=== PATIENT | female | born 1940 | race Caucasian/White ===

== ENCOUNTER 2022-09-17 12:38 | Outpatient (CLI) | payer MEDICARE | END 2022-09-17 12:39 | disposition home or self-care (01) | LOC: RAD 12:38 | PROVIDERS: ATTEND Nurse Practitioner Family | DX: M54.50 Low back pain, unspecified (principal); M43.17 Spondylolisthesis, lumbosacral region; M51.36 Other intervertebral disc degeneration, lumbar region | CPT/HCPCS: 72110 ==